=== PATIENT | female | born 1955 | race Caucasian/White ===

== ENCOUNTER 2016-08-23 10:34 | Outpatient (CLI) | payer OTHER ==
--- NOTE | 2016-08-23 13:35 | RAD ---
LEFT HUMERUS 2 VIEWS: HISTORY: Left arm pain. FINDINGS/IMPRESSION: Left humerus is intact. There are degenerative changes in the acromioclavicular joint. Mild degene rative changes are also seen in the elbow joint. POS: GIORGIH
== END 2016-08-23 10:35 | disposition home or self-care (01) ==
LOC: MADRAD 10:34
PROVIDERS: ATTEND Nurse Practitioner Family
DX: M79.603 Pain in arm, unspecified (principal); M19.019 Primary osteoarthritis, unspecified shoulder; M19.029 Primary osteoarthritis, unspecified elbow

== ENCOUNTER 2022-10-21 10:49 | Emergency (ER) | payer OTHER ==
[2022-10-21] MEDS ORDERED: Ondansetron PF 4 MG/2 ML Vial ONE (11:34)
[2022-10-21] MEDS ORDERED: Sodium Chloride 0.9% 1,000 ML ONE ×2 (11:34→13:14)
[2022-10-21 11:53] LABS: #Eosinphils 0.1 thou/uL (0.0-0.7); #Lymphocytes 1.6 thou/uL (1.20-3.40); #Monocytes 0.4 thou/uL (0.11-0.59); #Neutrophils 4.2 thou/uL (1.40-6.50); %Basophils 0.7 % (0.0-1.0); %Eosinophils 1.3 % (0.0-10.0); %Lymphocytes 25.4 % (21.0-51.0); %Monocytes 6.6 % (0.0-10.0); Hemoglobin 14.5 g/dL (12.0-16.0); Mean Corpuscular HGB CONC 32.2 g/dL (32.0-36.0); Mean Corpuscular Hemoglobin 29.2 pg (27.0-31.0); Mean Corpuscular Volume 90.8 fl (78.0-98.0); Mean Platelet Volume 10.5 fL (7.4-10.4); Platelet Count 236 10x3/uL (130-400); RBC Distribution Width 13.6 % (11.5-14.5); Red Blood Cell (RBC) Count 4.97 mill/uL (4.20-5.40); White Blood Cell (WBC) Count 6.3 10x3/uL (4.8-10.8)
[2022-10-21 12:15] LABS: ALT (SGPT) 24 U/L (8-55); AST (SGOT) 28 U/L (5-34); Albumin 4.3 g/dL (3.4-4.8); Alkaline Phosphatase 83 U/L (40-110); Anion Gap 19 mmol/L (10-20); BUN (Urea Nitrogen) 20 mg/dL (9.8-20.1); Bilirubin, Total 0.5 mg/dL (0.2-1.2); Calc. Creatinine Clearance 0 mL/min (70-130); Calcium 10.5 mg/dL (7.8-10.44); Carbon Dioxide 21 mmol/L (23-31); Chloride 99 mmol/L (98-107); Estimated GFR 31; Globulin 3.3 g/dL (2.4-3.5); Glucose 102 mg/dL (80-115); Lipase 21 U/L (8-78); Magnesium 1.7 mg/dL (1.6-2.6); Potassium 3.5 mmol/L (3.5-5.1); Protein, Total 7.6 g/dL (5.8-8.1); Sodium 135 mmol/L (136-145)
== END 2022-10-21 14:09 | disposition home or self-care (01) ==
LOC: MADERS 10:49
DX: K52.9 Noninfective gastroenteritis and colitis, unspecified (principal); K44.9 Diaphragmatic hernia without obstruction or gangrene; N26.1 Atrophy of kidney (terminal); N28.1 Cyst of kidney, acquired; I10 Essential (primary) hypertension; I25.10 Atherosclerotic heart disease of native coronary artery without angina pectoris; K21.9 Gastro-esophageal reflux disease without esophagitis; F17.210 Nicotine dependence, cigarettes, uncomplicated; Z95.828 Presence of other vascular implants and grafts
CPT/HCPCS: 74177; 80053; 83690; 83735; 83880; 85025; 96361; 96374; J2405; J7050

== ENCOUNTER 2022-10-22 14:03 | Outpatient (CLI) | payer OTHER | END 2022-10-22 14:04 | disposition home or self-care (01) | LOC: MADLABBHPM 14:03 → MADLAB 14:04 | PROVIDERS: ATTEND Nurse Practitioner Family | DX: R19.7 Diarrhea, unspecified (principal) | CPT/HCPCS: 87507 ==